=== PATIENT | male | born 1940 ===

== ENCOUNTER 2019-05-28 08:16 | Emergency (ER) | payer OTHER, MEDICARE, BC ==
[~2019-05-28] VITALS: Ht 167.6 cm; Wt 64.4 kg
[2019-05-28] MEDS ORDERED: LAMO25 PO (08:33)
[2019-05-28] MEDS ORDERED: TAMS.4ER PO (08:33)
[2019-05-28] MEDS ORDERED: ACET500 (08:33)
[2019-05-28] MEDS ORDERED: Zithromax250 MG PO (09:09)
== END 2019-05-28 09:22 | disposition home or self-care (01) ==
LOC: ER 08:16
DX: J18.9 Pneumonia, unspecified organism (principal); F43.10 Post-traumatic stress disorder, unspecified; Z79.899 Other long term (current) drug therapy
CPT/HCPCS: 71046; 99283-25

== ENCOUNTER 2019-05-31 05:19 | Inpatient (IN) | payer OTHER, MEDICARE, BC ==
[~2019-05-31] VITALS: Ht 165.1 cm
[~2019-05-31 05:19] MED LIST: ACET500; LAMO25 PO; TAMS.4ER PO; Zithromax250 MG PO
[2019-05-31 05:44] LABS: PCO2 Arterial 37.2 mmHg (35-45); PO2 Arterial 54.8 mmHg (80-100); pH Blood Arterial 7.42 (7.35-7.45)
[2019-05-31 05:58] LABS: BASOPHILS ABSOLUTE AUTO 0.08 K/mm3 (0.00-0.23); BASOPHILS PERCENT AUTO 1 % (0-2); EOSINOPHILS PERCENT AUTO 4 % (0-6); Hematocrit 38.2 % (37.0-53.0); Hemoglobin 12.7 g/dL (13.5-17.5); IMMATURE GRAN ABSOLUTE AUTO 0.07 K/mm3 (0.00-0.10); IMMATURE GRAN PERCENT AUTO 1 % (0-1); LYMPHOCYTES ABSOLUTE AUTO 1.68 K/mm3 (0.84-5.20); LYMPHOCYTES PERCENT AUTO 15 % (21-46); MONOCYTES ABSOLUTE AUTO 1.28 K/mm3 (0.16-1.47); MONOCYTES PERCENT AUTO 12 % (4-13); Mean Corpuscular HGB 30.5 pg (26.0-34.0); Mean Corpuscular HGB Conc 33.2 g/dL (31.5-36.5); Mean Corpuscular Volume 92 fL (80-100); Mean Platelet Volume 8.9 fL (9.1-12.4); NEUTROPHILS ABSOLUTE AUTO 7.53 K/mm3 (1.96-9.15); NEUTROPHILS PERCENT AUTO 68 % (41-73); Platelet Count 352 K/mm3 (150-400); RDW Coefficient Variation 12.8 % (11.7-14.2); Red Blood Cell Count 4.16 M/mm3 (4.30-5.90); White Blood Cell Count 11.04 K/mm3 (4.00-11.30)
[2019-05-31 06:17] LABS: Alanine Aminotransfer (ALT/SGP 25 U/L (12-78); Albumin, Blood 3.5 g/dL (3.4-5.0); Albumin/Globulin Ratio 0.9 (0.8-1.8); Alk Phos 57 U/L (50-136); Anion Gap 6 mmol/L (6-16); Aspartate Aminotrans (AST/SGOT 24 U/L (12-37); Bilirubin, Total 0.5 mg/dL (0.1-1.0); Blood Urea Nitrogen 16 mg/dL (8-24); CO2, Blood 26 mmol/L (21-32); Calcium, Blood 8.5 mg/dL (8.5-10.1); Chloride, Blood 100 mmol/L (98-108); Globulin, Blood 3.7 g/dL (2.2-4.0); Glomerular Filtration Rate >60 (60-); Glucose, Blood 100 mg/dL (70-99); Sodium, Blood 132 mmol/L (136-145); Total Protein, Blood 7.2 g/dL (6.4-8.2)
[2019-05-31 06:18] LABS: Influenza A Negative (NEGATIVE); Influenza B Negative (NEGATIVE)
--- NOTE | 2019-05-31 11:04 | NUR ---
Echocardiogram completed.
--- NOTE | 2019-05-31 11:05 | NUR ---
Echocardiogram completed.
--- NOTE | 2019-05-31 18:28 | NUR ---
SHIFT SUMMARY PT ARRIVED TO DEPARTMENT ON 6LNC O2 FROM ED. IN ER PT WAS ON V60 BIPAP FOR O2 SUPPORT. PT WAS ABLE TO BE WEANED TO 3LNC THIS AFTERNOON AND SWITCHED TO MSERIES BIPAP. PT WOULD INTERMITTANLY USE BIPAP WHEN HAVING INCREASED SOB. TROPONIN LEVEL CONTINUE TO INCREASE TODAY TO 1.13. DR OCAMPO AWARE AND ANOTHER TROPONIN ORDERED FOR MIDNIGHT. HEPARIN DRIP WAS INITIATED THIS AFTERNOON AT 13UNIT/KG/HR. NEXT PTT PLANNED FOR 1999. DR ZULUAGA WAS CONSULTED TODAY FOR ELEVATED TROPONINS. NO ACUTE INTERVENTIONS PLANNED AT THIS TIME. TELEMETRY SHOWS PT TO BE IN A SINUS RHYTHM W/BBB IN 80'S-90'S. VITALS HAVE REMAINED STABLE DURING SHIFT, NO C/O CHEST PAIN TODAY.
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
[2019-06-01 03:53] LABS: BASOPHILS ABSOLUTE AUTO 0.04 K/mm3 (0.00-0.23); BASOPHILS PERCENT AUTO 0 % (0-2); EOSINOPHILS ABSOLUTE AUTO 0.01 K/mm3 (0.00-0.68); EOSINOPHILS PERCENT AUTO 0 % (0-6); Hematocrit 32.5 % (37.0-53.0); Hemoglobin 10.9 g/dL (13.5-17.5); IMMATURE GRAN ABSOLUTE AUTO 0.15 K/mm3 (0.00-0.10); IMMATURE GRAN PERCENT AUTO 1 % (0-1); LYMPHOCYTES ABSOLUTE AUTO 1.23 K/mm3 (0.84-5.20); LYMPHOCYTES PERCENT AUTO 6 % (21-46); MONOCYTES ABSOLUTE AUTO 1.78 K/mm3 (0.16-1.47); MONOCYTES PERCENT AUTO 9 % (4-13); Mean Corpuscular HGB 30.6 pg (26.0-34.0); Mean Corpuscular HGB Conc 33.5 g/dL (31.5-36.5); Mean Corpuscular Volume 91 fL (80-100); Mean Platelet Volume 9.1 fL (9.1-12.4); NEUTROPHILS ABSOLUTE AUTO 17.13 K/mm3 (1.96-9.15); NEUTROPHILS PERCENT AUTO 84 % (41-73); Platelet Count 341 K/mm3 (150-400); RDW Coefficient Variation 12.8 % (11.7-14.2); RDW Standard Deviation 42.8 fL (35.1-46.3); Red Blood Cell Count 3.56 M/mm3 (4.30-5.90); White Blood Cell Count 20.34 K/mm3 (4.00-11.30)
[2019-06-01 04:16] LABS: Alanine Aminotransfer (ALT/SGP 16 U/L (12-78); Albumin/Globulin Ratio 0.9 (0.8-1.8); Alk Phos 45 U/L (50-136); Anion Gap 6 mmol/L (6-16); Aspartate Aminotrans (AST/SGOT 19 U/L (12-37); Bilirubin, Total 0.3 mg/dL (0.1-1.0); Blood Urea Nitrogen 25 mg/dL (8-24); Bun/Creatinine Ratio 32.4 (12.0-20.0); CO2, Blood 24 mmol/L (21-32); Calcium, Blood 8.3 mg/dL (8.5-10.1); Chloride, Blood 97 mmol/L (98-108); Creatinine, Blood 0.77 mg/dL (0.60-1.20); Globulin, Blood 3.2 g/dL (2.2-4.0); Glomerular Filtration Rate >60 (60-); Glucose, Blood 124 mg/dL (70-99); Potassium, Blood 4.8 mmol/L (3.5-5.5); Sodium, Blood 127 mmol/L (136-145); Total Protein, Blood 6.2 g/dL (6.4-8.2)
--- NOTE | 2019-06-01 18:11 | NUR ---
SHIFT SUMMARY PT ALERT AND ORIENTED. VS STABLE. O2 SATS HAVE REMAINED ABOVE 90% ON 4L NC OR BIPAP WITH 4L BLEED IN. PT DESATURATES QUICKLY WITH MINIMAL EXERTION. PT ABLE TO COUGH UP THICK SPUTUM AND SPECIMEN SENT TO LAB. PT RECEIVED BREATHING TX THIS AM PER RT AND REPORTS BREATHING HAS IMPROVED SINCE. PT DENIES ANY PAIN. WILL CONTINUE TO MONITOR AND REPORT TO ONCOMING RN. CALL LIGHT IN REACH.
--- NOTE | 2019-06-01 19:30 | NUR ---
ASSUMED CARE OF PT. IN NO ACUTE DISTRESS AT THIS TIME. DENIES PAIN. CALL LIGHT AND POSSESSIONS IN REACH, DENIES ANY NEEDS AT THIS TIME. WILL CONTINUE TO MONITOR.
--- NOTE | 2019-06-02 03:45 | NUR ---
NOTIFIED BY TRAVEL PT OF PT O2 SATURATION DROPPING TO INTO THE 70S. ASSESSED PT AND CALLED RESPIRATORY THERAPY TO ADMINISTER BREATHING TX TO PT. O2 TITRATED TO 6L/NC TO RAISE SATS >90%. BIPAP REPLACED WITH 6L O2 ADDED. WILL CONTINUE TO MONITOR AND REASSESS.
[2019-06-02 04:00] LABS: Anion Gap 7 mmol/L (6-16); Blood Urea Nitrogen 30 mg/dL (8-24); Bun/Creatinine Ratio 42.7 (12.0-20.0); CO2, Blood 26 mmol/L (21-32); Calcium, Blood 8.2 mg/dL (8.5-10.1); Chloride, Blood 94 mmol/L (98-108); Glomerular Filtration Rate >60 (60-); Glucose, Blood 107 mg/dL (70-99); Potassium, Blood 4.7 mmol/L (3.5-5.5); Sodium, Blood 127 mmol/L (136-145)
--- NOTE | 2019-06-02 04:15 | NUR ---
PT ASLEEP C HOB ELEVATED, APPEARS COMFORTABLE AT THIS TIME. 02 SAT >90% ON BIPAP. NO FURTHER S/S RESPIRATORY DISTRESS NOTED.
--- NOTE | 2019-06-02 04:20 | NUR ---
RECEIVED PHONE CALL FROM LILO IN PHARMACY. NO CHANGES TO PT'S HEPARIN AT THIS TIME.
--- NOTE | 2019-06-02 05:35 | NUR ---
SPOKE TO DR. OCAMPO REGARDING PT'S SODIUM LEVEL. NO NEW ORDERS AT THIS TIME.
--- NOTE | 2019-06-02 05:56 | NUR ---
PT RESTING IN BED COMFORTABLY, IN NO ACUTE DISTRESS. WAS MONITORED EVERY 1-2 HOURS WITH NEEDS MET. DENIES ANY NEEDS AT THIS TIME. CALL LIGHT AND POSSESSIONS IN REACH, BED IN LOW AND LOCKED POSITION.
--- NOTE | 2019-06-02 18:27 | NUR ---
SHIFT SUMMARY PT ALERT AND ORIENTED. VS STABLE. HR NSR. BP STABLE. O2 SATS HAVE REMAINED ABOVE 90% ON 4L NC. PT REPORTS BREATHING "MUCH EASIER" THIS SHIFT. PT ABLE TO TOLERATE ACTIVITY AND SHOWERED THIS SHIFT. SATS REMAINED ABOVE 90% WITH ACTIVITY. PT DENIES ANY PAIN. PLAN FOR STRESS TEST TOMORROW. PT TO BE NPO AT MIDNIGHT. WILL CONTINUE TO MONITOR AND REPORT TO ONCOMING RN.
--- NOTE | 2019-06-02 19:46 | NUR ---
CARE ASSUMPTION PT A&O X4. VSS. MONITOR SHOWS SR, HR 70's. LUNG SOUNDS CLEAR, SPO2 > 92% ON 4L NC. PT REPORTS "GREENISH-YELLOW" MUCUS W/ COUGH, STATING "IT'S GETTING CLEARER, I'M COUGHING MORE AND MORE UP." PT REQUESTING COUGH MEDICATION, WILL PROVIDE PER EMAR. PT W/ HEPARIN GTT, VERIFIED W/ DAY SHIFT RN UPON TRANSFER OF CARE, THEN TITRATED PER PHARMACY, SEE EMAR. PT TO BE NPO AFTER MIDNIGHT FOR STRESS TEST IN AM. WILL CONTINUE TO MONITOR AND PROVIDE CARE.
[2019-06-03 03:50] LABS: BASOPHILS ABSOLUTE AUTO 0.08 K/mm3 (0.00-0.23); BASOPHILS PERCENT AUTO 1 % (0-2); EOSINOPHILS ABSOLUTE AUTO 0.46 K/mm3 (0.00-0.68); EOSINOPHILS PERCENT AUTO 3 % (0-6); Hematocrit 35.1 % (37.0-53.0); Hemoglobin 11.5 g/dL (13.5-17.5); IMMATURE GRAN ABSOLUTE AUTO 0.17 K/mm3 (0.00-0.10); IMMATURE GRAN PERCENT AUTO 1 % (0-1); LYMPHOCYTES PERCENT AUTO 12 % (21-46); MONOCYTES ABSOLUTE AUTO 2.01 K/mm3 (0.16-1.47); MONOCYTES PERCENT AUTO 12 % (4-13); Mean Corpuscular HGB Conc 32.8 g/dL (31.5-36.5); Mean Corpuscular Volume 92 fL (80-100); Mean Platelet Volume 9.1 fL (9.1-12.4); NEUTROPHILS ABSOLUTE AUTO 12.15 K/mm3 (1.96-9.15); NEUTROPHILS PERCENT AUTO 72 % (41-73); Platelet Count 351 K/mm3 (150-400); RDW Standard Deviation 42.8 fL (35.1-46.3); Red Blood Cell Count 3.83 M/mm3 (4.30-5.90); White Blood Cell Count 16.87 K/mm3 (4.00-11.30)
[2019-06-03 04:05] LABS: Anion Gap 7 mmol/L (6-16); Blood Urea Nitrogen 21 mg/dL (8-24); Bun/Creatinine Ratio 28.7 (12.0-20.0); CO2, Blood 27 mmol/L (21-32); Calcium, Blood 8.3 mg/dL (8.5-10.1); Chloride, Blood 93 mmol/L (98-108); Creatinine, Blood 0.73 mg/dL (0.60-1.20); Glomerular Filtration Rate >60 (60-); Glucose, Blood 99 mg/dL (70-99); Potassium, Blood 4.3 mmol/L (3.5-5.5); Sodium, Blood 127 mmol/L (136-145)
--- NOTE | 2019-06-03 05:43 | NUR ---
SHIFT SUMMARY PT CONTINUES TO BE A&O X4. VSS. MONITOR SHOWS SR, HR 70's-80's. LUNG SOUNDS CLEAR, SPO2 > 92% ON 3-4L NC OR BIPAP W/ 3L BLEED IN. PT MEDICATED W/ PRN COUGH MEDICATION PER EMAR/PT REQUEST X1 THIS SHIFT. PT RECIEVING BREATHING TX's BY RT. PT NPO SINCE MIDNIGHT FOR STRESS TEST TO BE DONE THIS AM. HEPARIN GTT INFUSING PER ORDERS. WILL CONTINUE TO MONITOR AND PROVIDE CARE UNTIL REPORT OFF TO DAY SHIFT RN.
[2019-06-03] MEDS ORDERED: LAMO25 PO (08:13)
--- NOTE | 2019-06-03 10:09 | NUR ---
[facility] MED L[facility]: [facility] TO [facility] TO [facility]QU[facility] MED LIST INORDER TO INSURE PT HOME MED LIST IS UPTO DATE.
--- NOTE | 2019-06-03 20:38 | NUR ---
ASSUMED CARE OF PATIENT AT 1900, PATIENT AWAKE AND ALERT LYING IN BED IN NO APPARENT DISTRESS. HEPARIN DRIP VERIFIED WITH OUTGOING NURSE RICHARD (22UNITS/HR AT 63KG). ALL VS WNL, PATIENT DENIES CP, DENIES HEADACHE. PATIENT QUESTIONS HIS NPO STATUS PER PROCEDURE TOMORROW, WILL RESEARCH AND RESPOND. WILL TREAT PATIENT PER EMAR AND UNIT PROTOCOL, AND WILL CONTINUE TO MONITOR.
--- NOTE | 2019-06-04 07:05 | NUR ---
SHIFT SUMMARY NO ACUTE CHANGES FROM NOTE PREVIOUS. PATIENT DENIES PAIN, DENIES DISCOMFORT. ON BIPAP FROM AROUND 5 ONWARD, PATIENT WAS COOPERATIVE WITH ROUTINE INTERVENTIONS, AROUSABLE BY VOICE (LOUD, HE IS HARD OF HEARING), AND DENIED NEED FOR ANYTHING OUTSIDE ROUTINE. ALL VSS AND WNL T/O SHIFT. CARE AND REPORT PASSED TO ONCOMING SHIFT AT 0700, PATIENT BREATHING DEEP, LYING IN BED, CALL LIGHT IN REACH AND BED LOCKED AND LOW.
--- NOTE | 2019-06-04 08:00 | NUR ---
pt laying in bed awake a/ox3, pleasant and cooperative with care, follows commands well, denies pain, lungs are clear in upper escalante, dim in bases, resp even and unlabored, no cough noted, is on 3 liters o2 via n/c, hrr, tele in place running sr per monitor, see strip, no edema noted, ppp+1, cap refill <3sec, vs stable, afebrile, iv site is clear and patent, btx4, abd flat soft nontender, voids without diff, via urinal, skin c/w/d, maew, jane, call light in reach. will be having second portion of stress test today. will give breakfast, then npo for test at 1430.
--- NOTE | 2019-06-04 12:27 | NUR ---
pt is npo for pending stress test, he is doing ok, no complaints. pallative care in to speak with him. call light in reach.
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
--- NOTE | 2019-06-04 18:27 | NUR ---
pt doing ok, will have cardiology consult. is eating well. no complaints, is asking about going home. call light in reach, no further changes.
--- NOTE | 2019-06-04 19:48 | NUR ---
ASSUMED CARE ASSUMED CARE OF PT AT 1900, PATIENT AWAKE AND ALERT IN BED, NO DISTRESS, NO URGENT NEEDS. VITAL SIGNS WNL, BREATH SOUNDS CLEAR AND DIMINISHED IN LOWER LOBES. HEPARIN GTT IS VERIFIED W/ OUTGOING NURSE. WILL CONTINUE TO [facility]
--- NOTE | 2019-06-05 01:20 | NUR ---
HEPARIN RATE CHANGE PER PHARMACY, PATIENT'S HEPARIN DRIP RATE CHANGED TO 21.5 UNITS/KG/HR, DOSED AT 63KG. APTT RESULTS SHOW 96.8. PATIENT IS AWAKE IN BED AT THIS TIME IN NO DISTRESS, EXTREMELY CONVERSATIONAL. RATE CHANGED VERIFIED WITH SECOND RN. WILL CONTINUE TO MONITOR
--- NOTE | 2019-06-05 06:20 | NUR ---
SHIFT SUMMARY NO CHANGES FROM INITIAL NOTE. PATIENT WAS COOPERATIVE WITH ALL INTERVENTIONS AND NOTHING BEYOND ROUTINE INTERVENTIONS OCCURRED THIS SHIFT. HEPARIN DRIP WAS TITRATED PER PHARMACY ONCE, AND CONTINUED THROUGH A NEW BAG ONE TIME. ALL VSS AND WNL T/O THE SHIFT. WILL CONTINUE TO MONITOR AND WILL PASS CARE AND REPORT TO ONCOMING SHIFT. BED IS LOCKED AND LOW, CALL LIGHT W/IN REACH
--- NOTE | 2019-06-05 07:21 | NUR ---
pt laying in bed awake a/ox3, pleasant and cooperative with care, follows commands well, denies pain at this time, lungs are clear in upper escalante, dim in bases, resp even and unlabored, no cough noted or reported, is on 2 liters at this time, hrr, tele in place running sr with bbb per tele, see strip, no edema noted, ppp+1, cap refill <3sec, vs stable, afebrile, iv site is clear and patent, to left ac, heperin infusing, btx4, abd flat soft nontender, voids via urinal, clear yellow urine, skin c/w/d but frail, jane george, call light in reach, Dr. 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
[2019-06-05 08:03] LABS: International Normalized Ratio 1.12; Prothrombin Time Results 11.9 Sec (9.7-11.5)
--- NOTE | 2019-06-05 13:30 | NUR ---
PT RETURNED TO ROOM FROM CATH, TR BAND TO R WRIST, SITE IS CLEAR WITH SOME OLD BLOOD AROUND PERIMETER, V.S. WNL. PT IS A BIT LOOPY, BUT WIDE AWAKE, NO COMPLAINTS. WILL BE GOING TO [facility] FOR BIPASS, WILL COME SPEAK TO PT. CALL LIGHT IN REACH.
--- NOTE | 2019-06-05 17:36 | NUR ---
PT IS BEING [facility] TRANSFERED TO [facility] FOR BIPASS, HIS TR BAND HAS BEEN DEFLATED AND REMOVED, WITH OCCLUSIVE DRESSING PLACED, ARM BOARD STILL IN PLACE. REPORT WAS GIVEN TO LEIDY DIAZ, HE LEFT WITH ALL HIS BELONGINGS VIA [facility].
== END 2019-06-05 17:32 | disposition short-term general hospital (02) | DRG 291 ==
LOC: ER 05:19 → PCU 08:44
PROVIDERS: Emergency Medicine; Internal Medicine; Internal Medicine Cardiovascular Disease; Nurse Practitioner Acute Care; ADMIT Hospitalist
PROC: 5A09357 Assistance with Respiratory Ventilation, Less than 24 Consecutive Hours, Continuous Positive Airway Pressure (ICD-10-PCS; principal; 2019-05-31)
DX: I11.0 Hypertensive heart disease with heart failure (principal); J96.01 Acute respiratory failure with hypoxia; I47.2 Ventricular tachycardia; E87.1 Hypo-osmolality and hyponatremia; I24.8 Other forms of acute ischemic heart disease; I50.43 Acute on chronic combined systolic (congestive) and diastolic (congestive) heart failure; N40.0 Benign prostatic hyperplasia without lower urinary tract symptoms; F43.10 Post-traumatic stress disorder, unspecified; Z87.891 Personal history of nicotine dependence; I34.0 Nonrheumatic mitral (valve) insufficiency; I25.5 Ischemic cardiomyopathy; I25.10 Atherosclerotic heart disease of native coronary artery without angina pectoris
CPT/HCPCS: 36415; 36600; 71045; 71260; 78452; 80048; 80053; 82803; 83605; 83735; 83880; 84145; 84484; 85025; 85610; 85730; 86850; 86900; 86901; 87040; 87070; 87077; 87186; 87205; 87449; 87804; 93005; 93010; 93017; 93306; 93458; 94640; 94644; 94660; 94762; 96365-59; 96375; 97116; 97161; 97165; 99152; 99285-25; A9500; C1769; C1894; J0456; J0696; J0706; J1644; J1650; J1940; J2250; J2785; J2930; J3010; J3475; J7030; J7040; J7050; Q9967

== ENCOUNTER 2019-07-24 14:31 | Inpatient (IN) | payer OTHER ==
[~2019-07-24] VITALS: Ht 167.6 cm; Wt 58.9 kg
[~2019-07-24 14:31] MED LIST changes: -ACET500; +LAMO100 PO; -LAMO25 PO; +Lamictal25 MG PO
[2019-07-24 15:09] LABS: BASOPHILS ABSOLUTE AUTO 0.07 K/mm3 (0.00-0.23); BASOPHILS PERCENT AUTO 1 % (0-2); EOSINOPHILS ABSOLUTE AUTO 0.41 K/mm3 (0.00-0.68); EOSINOPHILS PERCENT AUTO 4 % (0-6); Hematocrit 32.2 % (37.0-53.0); Hemoglobin 10.1 g/dL (13.5-17.5); IMMATURE GRAN ABSOLUTE AUTO 0.08 K/mm3 (0.00-0.10); IMMATURE GRAN PERCENT AUTO 1 % (0-1); LYMPHOCYTES ABSOLUTE AUTO 0.88 K/mm3 (0.84-5.20); LYMPHOCYTES PERCENT AUTO 8 % (21-46); MONOCYTES ABSOLUTE AUTO 1.34 K/mm3 (0.16-1.47); MONOCYTES PERCENT AUTO 13 % (4-13); Mean Corpuscular HGB 28.1 pg (26.0-34.0); Mean Corpuscular HGB Conc 31.4 g/dL (31.5-36.5); Mean Corpuscular Volume 89 fL (80-100); Mean Platelet Volume 8.5 fL (9.1-12.4); NEUTROPHILS ABSOLUTE AUTO 7.92 K/mm3 (1.96-9.15); NEUTROPHILS PERCENT AUTO 74 % (41-73); Platelet Count 332 K/mm3 (150-400); RDW Standard Deviation 46.3 fL (35.1-46.3)
[2019-07-24 15:25] LABS: Magnesium, Blood 2.1 mg/dL (1.6-2.4); Troponin I 0.021 ng/mL (0.000-0.040)
[2019-07-24 15:26] LABS: Alanine Aminotransfer (ALT/SGP 20 U/L (12-78); Albumin, Blood 3.1 g/dL (3.4-5.0); Albumin/Globulin Ratio 0.8 (0.8-1.8); Alk Phos 74 U/L (50-136); Anion Gap 5 mmol/L (6-16); Aspartate Aminotrans (AST/SGOT 21 U/L (12-37); Bilirubin, Total 0.4 mg/dL (0.1-1.0); Blood Urea Nitrogen 26 mg/dL (8-24); Bun/Creatinine Ratio 39.9 (12.0-20.0); CO2, Blood 23 mmol/L (21-32); Calcium, Blood 8.6 mg/dL (8.5-10.1); Chloride, Blood 101 mmol/L (98-108); Creatinine, Blood 0.65 mg/dL (0.60-1.20); Globulin, Blood 3.7 g/dL (2.2-4.0); Glomerular Filtration Rate >60 (60-); Glucose, Blood 106 mg/dL (70-99); Potassium, Blood 4.2 mmol/L (3.5-5.5); Sodium, Blood 129 mmol/L (136-145); Total Protein, Blood 6.8 g/dL (6.4-8.2)
[2019-07-24 15:28] LABS: PO2 Arterial 57.1 mmHg (80-100); pH Blood Arterial 7.48 (7.35-7.45)
[2019-07-24 15:48] LABS: Influenza A Negative (NEGATIVE); Influenza B Negative (NEGATIVE)
[2019-07-24] MEDS ORDERED: ASPI81CH PO (16:18)
[2019-07-24] MEDS ORDERED: ATOR20 PO (16:18)
[2019-07-24] MEDS ORDERED: METO50 PO (16:19)
[2019-07-24] MEDS ORDERED: Thera-M1 EACH PO (16:19)
[2019-07-24] MEDS ORDERED: DILT120 PO (16:19)
[2019-07-24] MEDS ORDERED: POTA10T PO (17:05)
[2019-07-24] MEDS ORDERED: Ferrous Sulfat325 M2 PO (17:07)
[2019-07-24] MEDS ORDERED: FURO20 PO (17:08)
[2019-07-24] MEDS ORDERED: OXYC5 PO (17:12)
[2019-07-24] MEDS ORDERED: ACET325 PO (17:14)
--- NOTE | 2019-07-24 18:57 | NUR ---
PT ARRIVES FROM THE ER, ALERT AND ORIENTED, ABLE TO AMBULATE INDEPENDENTLY TO THE BATHROOM, PT DENIES CHEST PAIN
[2019-07-25 04:40] LABS: BASOPHILS ABSOLUTE AUTO 0.05 K/mm3 (0.00-0.23); BASOPHILS PERCENT AUTO 1 % (0-2); EOSINOPHILS ABSOLUTE AUTO 0.37 K/mm3 (0.00-0.68); EOSINOPHILS PERCENT AUTO 4 % (0-6); Hematocrit 31.1 % (37.0-53.0); Hemoglobin 9.8 g/dL (13.5-17.5); IMMATURE GRAN ABSOLUTE AUTO 0.03 K/mm3 (0.00-0.10); IMMATURE GRAN PERCENT AUTO 0 % (0-1); LYMPHOCYTES ABSOLUTE AUTO 1.09 K/mm3 (0.84-5.20); LYMPHOCYTES PERCENT AUTO 11 % (21-46); MONOCYTES ABSOLUTE AUTO 1.25 K/mm3 (0.16-1.47); MONOCYTES PERCENT AUTO 13 % (4-13); Mean Corpuscular HGB 27.7 pg (26.0-34.0); Mean Corpuscular HGB Conc 31.5 g/dL (31.5-36.5); Mean Corpuscular Volume 88 fL (80-100); Mean Platelet Volume 8.5 fL (9.1-12.4); NEUTROPHILS PERCENT AUTO 72 % (41-73); Platelet Count 311 K/mm3 (150-400); RDW Coefficient Variation 14.1 % (11.7-14.2); RDW Standard Deviation 45.7 fL (35.1-46.3); Red Blood Cell Count 3.54 M/mm3 (4.30-5.90); White Blood Cell Count 9.99 K/mm3 (4.00-11.30)
[2019-07-25 05:01] LABS: Alanine Aminotransfer (ALT/SGP 18 U/L (12-78); Albumin/Globulin Ratio 0.9 (0.8-1.8); Alk Phos 65 U/L (50-136); Anion Gap 7 mmol/L (6-16); Aspartate Aminotrans (AST/SGOT 18 U/L (12-37); Bilirubin, Total 0.6 mg/dL (0.1-1.0); Blood Urea Nitrogen 26 mg/dL (8-24); Bun/Creatinine Ratio 32.6 (12.0-20.0); CO2, Blood 25 mmol/L (21-32); Calcium, Blood 8.3 mg/dL (8.5-10.1); Chloride, Blood 101 mmol/L (98-108); Globulin, Blood 3.5 g/dL (2.2-4.0); Glomerular Filtration Rate >60 (60-); Glucose, Blood 94 mg/dL (70-99); Sodium, Blood 133 mmol/L (136-145); Total Protein, Blood 6.5 g/dL (6.4-8.2)
--- NOTE | 2019-07-25 05:47 | NUR ---
SHIFT SUMMARY PT NEW ER ADMIT THIS SHIFT (329), PT WALKED TO BED FROM STRETCHER (HEAVY 2 ASSIST), PT WAS VERY TIRED ON ARRIVAL, NO ACCUTE CHANGES SINCE ASSUMING CARE, NO C/O ANY KIND, (ISAURA) HAS REMAINED AT BEDSIDE T/O SHIFT AND IS VERY ACTIVE IN PTS CARE, PT SLEEPING AT THIS TIME, CALL LIGHT IN REACH, WILL CONT TO MONITOR UNTIL REPORT GIVEN TO DAY RN.
--- NOTE | 2019-07-25 05:57 | NUR ---
SHIFT SUMMARY PT WAS NEW ER ADMIT AT START OF SHIFT, NO ACUTE CHANGES SINCE ASSUMING CARE, NO CP OR SOB REPORTED, PT STATES HE HAS "NOT SLEPT AT ALL" AND HAS "COUGHED ALL NIGHT", THIS RN HAS HEARD SOME OCCASIONAL MOIST COUGH AND HAVE CHECKED ON PT SEVERAL TIMES AND HE HAS BEEN ASLEEP, PT HAS WOKE SEVERAL TIMES TO VOID & HAS BEEN STEADY W/FWW TO BR. PT BEDRESTING AT THIS TIME, CALL LIGHT IN REACH, WILL CONT TO MONITOR UNTIL REPORT GIVEN TO DAY RN.
--- NOTE | 2019-07-25 18:03 | NUR ---
SHIFT SUMMARY PT IS A/O X 4 WITH NO C/O PAIN. HE SELF AMBUALTES IN THE ROOM. PT DENIES ANY SOB OR CHEST PAIN. ACCOUNTING PROFESSIONAL REPORTS 1ST DEGREE BLOCK WITH A BUNDLE BRANCH BLOCK. TEDS ARE IN PLACE ORDERED. PT MET WITH WITH [facility] VOLUNTEER TODAY WITH SEEMED TO LIFT HIS SPIRITS SIGNIFICANTLY. PT IS RESTING IN BED AND IS ABLE TO MAKE HIS NEEDS KNOWN. HE CALLS FOR HELP WHEN NEEDED. CALL LIGHT IS IN REACH.
--- NOTE | 2019-07-26 04:52 | NUR ---
SHIFT SUMMARY PT HAS HAD NO ACUTE CHANGES THIS SHIFT, NO C/O ANY KIND, UP TO BR INDEP A FEW TIMES T/O NIGHT, OTHER THAN THAT SLEPT T/O SHIFT, PT SLEEPING AT THIS TIME, CALL LIGHT IN REACH, WILL CONT TO MONITOR UNTIL REPORT GIVEN TO DAY RN.
[2019-07-26 05:05] LABS: Hematocrit 29.7 % (37.0-53.0); Hemoglobin 9.4 g/dL (13.5-17.5); Mean Corpuscular HGB 27.6 pg (26.0-34.0); Mean Corpuscular HGB Conc 31.6 g/dL (31.5-36.5); Mean Corpuscular Volume 87 fL (80-100); Mean Platelet Volume 8.5 fL (9.1-12.4); Platelet Count 300 K/mm3 (150-400); RDW Coefficient Variation 14.2 % (11.7-14.2); RDW Standard Deviation 45.3 fL (35.1-46.3); White Blood Cell Count 10.21 K/mm3 (4.00-11.30)
[2019-07-26 05:33] LABS: Albumin, Blood 2.7 g/dL (3.4-5.0); Anion Gap 6 mmol/L (6-16); Blood Urea Nitrogen 24 mg/dL (8-24); Bun/Creatinine Ratio 29.1 (12.0-20.0); CO2, Blood 25 mmol/L (21-32); Calcium, Blood 8.4 mg/dL (8.5-10.1); Chloride, Blood 99 mmol/L (98-108); Creatinine, Blood 0.83 mg/dL (0.60-1.20); Glomerular Filtration Rate >60 (60-); Glucose, Blood 89 mg/dL (70-99); Phosphorus, Blood 3.4 mg/dL (2.5-4.9); Sodium, Blood 130 mmol/L (136-145)
--- NOTE | 2019-07-26 15:50 | NUR ---
SHIFT SUMMARY PT IS A/O X 4 WITH NO C/O PAIN OR DISCOMFORT. HE DENIES CHEST PAIN AND SOB. HE IS PLEASANT AND THANKFUL FOR HIS CARE. COVERAGE SPECIALIST REPORTS SINUS RHYTHM. BOBBY GUEVARA DONNED. EDEMA IMPROVED WITH LASIX ORDERED. WORKED WITH PT TODAY AND WAS ABLE TO AMBULATE AROUND THE UNIT WITH A FWW. HE REMAINS IND IN HIS ROOM AND SELF AMBULATES TO THE TOILET. HE WAS SET UP FOR A SHOWER THIS MORNING AND LINENS WERE CHANGED. PT IS ABLE TO MAKE HIS NEEDS KNOWN AND CALLS FOR HELP WHEN NEEDED. CALL LIGHT IS IN REACH.
--- NOTE | 2019-07-27 05:06 | NUR ---
SHIFT SUMMARY- PT. A&O, INDEPENDENT IN ROOM. DENIED ANY PAIN OR DISCOMFORT T/O THE NIGHT. PT. NOTED TO HAVE SOME SOB W/EXERTION, ON 2L NC. VSS. PT. ASLEEP MOST OF THE NIGHT. NO APPARENT DISTRESS NOTED. CALL LIGHT WITHIN REACH AND SIDE RAILS UP X2. WILL CONT TO MONITOR.
--- NOTE | 2019-07-27 19:12 | NUR ---
PT GAVE PERSMISSION FOR SRGer.ROQUE TO PROVIDE CARE ON 07/28/19
--- NOTE | 2019-07-28 05:13 | NUR ---
SHIFT SUMMARY- PT. HAD NO ACUTE CHANGES OVERNIGHT. TOOK SHOWER LAST AND SCHEDULED MEDS GIVEN. TOLERATED WELL. PT. STATED SLEPT WELL DURING THE NIGHT. DENIED ANY PAIN OR DISCOMFORT. CALL LIGHT WITHIN REACH AND SIDE RAILS UPX2. WILL CONT TO MONITOR.
[2019-07-28 09:17] LABS: Anion Gap 6 mmol/L (6-16); Blood Urea Nitrogen 28 mg/dL (8-24); Bun/Creatinine Ratio 35.8 (12.0-20.0); CO2, Blood 30 mmol/L (21-32); Calcium, Blood 8.7 mg/dL (8.5-10.1); Chloride, Blood 93 mmol/L (98-108); Creatinine, Blood 0.78 mg/dL (0.60-1.20); Glomerular Filtration Rate >60 (60-); Glucose, Blood 113 mg/dL (70-99); Potassium, Blood 3.7 mmol/L (3.5-5.5); Sodium, Blood 129 mmol/L (136-145)
--- NOTE | 2019-07-28 19:09 | NUR ---
PATIENT IS ALERT AND ORIENTED AND COOPERATIVE WITH CARE. 1,500 ML FLUID RESTRICTION. NO COMPLINATS.
--- NOTE | 2019-07-29 05:00 | NUR ---
SHIFT SUMMARY- NO ACUTE EVENTS OVERNIGHT. PT. A&O, PLEASANT AND COOPERATIVE WITH CARE. PT. CONTS TO BE DIURESED WITH GOOD URINE OUTPUT. NO COMPLAINTS T/O THE SHIFT. PT. ON 1500ML FLUID RESTRICTION, COMPLIANT WITH RESTRICTION. DENIES ANY NEEDS AT THIS TIME. CALL LIGHT WITHIN REACH AND SIDE RAILS UP X2. WILL CONT TO MONITOR.
[2019-07-29 05:31] LABS: Magnesium, Blood 2.1 mg/dL (1.6-2.4)
[2019-07-29 05:32] LABS: Anion Gap 7 mmol/L (6-16); Blood Urea Nitrogen 30 mg/dL (8-24); Bun/Creatinine Ratio 34.1 (12.0-20.0); CO2, Blood 29 mmol/L (21-32); Calcium, Blood 8.6 mg/dL (8.5-10.1); Chloride, Blood 95 mmol/L (98-108); Creatinine, Blood 0.88 mg/dL (0.60-1.20); Glomerular Filtration Rate >60 (60-); Glucose, Blood 89 mg/dL (70-99); Potassium, Blood 3.9 mmol/L (3.5-5.5); Sodium, Blood 131 mmol/L (136-145)
--- NOTE | 2019-07-29 17:50 | NUR ---
PATIENT A/OX4, UP INDEPENDENTLY IN ROOM. VSS, NOW ON RA. DENIES ANY PAIN OR DISCOMFORT. SKIN INTACT. 22G IV TO L HAND WNL AND SL. CONTINUES ON IV LASIX. 1.5L FLUID RESTRICTION. CALM AND COOPERATIVE WITH CARE, CALLS APPROPRIATELY FOR ASSISTANCE. PATIENT FROM [facility] AND PLANS TO DC BACK THERE.
--- NOTE | 2019-07-30 04:11 | NUR ---
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
[2019-07-30 05:09] LABS: Anion Gap 7 mmol/L (6-16); Blood Urea Nitrogen 31 mg/dL (8-24); Bun/Creatinine Ratio 34.4 (12.0-20.0); CO2, Blood 29 mmol/L (21-32); Calcium, Blood 8.5 mg/dL (8.5-10.1); Chloride, Blood 93 mmol/L (98-108); Glomerular Filtration Rate >60 (60-); Glucose, Blood 93 mg/dL (70-99); Potassium, Blood 3.6 mmol/L (3.5-5.5); Sodium, Blood 129 mmol/L (136-145)
[2019-07-30] MEDS ORDERED: MELATONIN5 M1 PO (10:29)
--- NOTE | 2019-07-30 11:30 | NUR ---
PATIENT D[facility]. RX MEDICATIONS FAXED TO [facility] [address]. DC INSTRUCTIONS AND EDUCATION DISCUSSED WITH PATIENT AND COPY PROVIDED. PATIENT DENIES ANY FURTHER QUESTIONS OR CONCERNS.
== END 2019-07-30 11:29 | disposition home health service (06) | DRG 291 ==
LOC: ER 14:31 → MEDS 16:28
PROVIDERS: Emergency Medicine; Internal Medicine; Nurse Practitioner Acute Care; ADMIT Internal Medicine
DX: I50.43 Acute on chronic combined systolic (congestive) and diastolic (congestive) heart failure (principal); J96.01 Acute respiratory failure with hypoxia; E87.1 Hypo-osmolality and hyponatremia; I25.10 Atherosclerotic heart disease of native coronary artery without angina pectoris; N40.0 Benign prostatic hyperplasia without lower urinary tract symptoms; F43.12 Post-traumatic stress disorder, chronic; I34.0 Nonrheumatic mitral (valve) insufficiency; Z95.1 Presence of aortocoronary bypass graft; D63.8 Anemia in other chronic diseases classified elsewhere
CPT/HCPCS: 36415; 36600; 71045; 71046; 80048; 80053; 80069; 82803; 83735; 83880; 84295; 84484; 85025; 85027; 87804; 93005; 93010; 94761; 96374; 97110; 97116; 97161; 97165; 99285-25; A9270; A9270-GY; J1650; J1940

== ENCOUNTER → 2019-08-27 | Outpatient (CLI) | payer MEDICARE, BC ==
[~2019-08-27] MED LIST changes: +ACET325 PO; +ASPI81CH PO; +ATOR20 PO; +DILT120 PO; +FURO20 PO; +Ferrous Sulfat325 M2 PO; +MELATONIN5 M1 PO; +METO50 PO; +OXYC5 PO; +POTA10T PO; +Thera-M1 EACH PO
[2019-08-27 13:50] LABS: BASOPHILS ABSOLUTE AUTO 0.06 K/mm3 (0.00-0.23); BASOPHILS PERCENT AUTO 1 % (0-2); EOSINOPHILS ABSOLUTE AUTO 0.53 K/mm3 (0.00-0.68); EOSINOPHILS PERCENT AUTO 6 % (0-6); Hematocrit 34.1 % (37.0-53.0); Hemoglobin 10.5 g/dL (13.5-17.5); IMMATURE GRAN ABSOLUTE AUTO 0.05 K/mm3 (0.00-0.10); IMMATURE GRAN PERCENT AUTO 1 % (0-1); LYMPHOCYTES ABSOLUTE AUTO 1.34 K/mm3 (0.84-5.20); LYMPHOCYTES PERCENT AUTO 14 % (21-46); MONOCYTES ABSOLUTE AUTO 0.98 K/mm3 (0.16-1.47); MONOCYTES PERCENT AUTO 10 % (4-13); Mean Corpuscular HGB 26.6 pg (26.0-34.0); Mean Corpuscular HGB Conc 30.8 g/dL (31.5-36.5); Mean Corpuscular Volume 87 fL (80-100); Mean Platelet Volume 9.5 fL (9.1-12.4); NEUTROPHILS PERCENT AUTO 69 % (41-73); Platelet Count 317 K/mm3 (150-400); RDW Coefficient Variation 16.9 % (11.7-14.2); RDW Standard Deviation 53.4 fL (35.1-46.3); Red Blood Cell Count 3.94 M/mm3 (4.30-5.90); White Blood Cell Count 9.46 K/mm3 (4.00-11.30)
[2019-08-27 13:59] LABS: Alanine Aminotransfer (ALT/SGP 27 U/L (12-78); Albumin, Blood 3.4 g/dL (3.4-5.0); Albumin/Globulin Ratio 0.9 (0.8-1.8); Alk Phos 124 U/L (40-126); Anion Gap 12 mmol/L (6-16); Aspartate Aminotrans (AST/SGOT 25 U/L (12-37); Bilirubin, Total 0.6 mg/dL (0.1-1.0); Blood Urea Nitrogen 27 mg/dL (8-24); CHOL/HDL RATIO 2.5; CO2, Blood 25 mmol/L (21-32); Calcium, Blood 8.6 mg/dL (8.5-10.1); Chloride, Blood 101 mmol/L (98-108); Cholesterol 85 mg/dL (50-200); Glomerular Filtration Rate >60 (60-); Glucose, Blood 66 mg/dL (70-99); HDL Cholesterol 34 mg/dL (>39); LDL/HDL RATIO 1.1; Low Density Lipoprotein Chol 39 mg/dL (<110); Potassium, Blood 4.3 mmol/L (3.5-5.5); Sodium, Blood 138 mmol/L (136-145); Total Protein, Blood 7.4 g/dL (6.4-8.2); Triglycerides 60 mg/dL (30-160); Very Low Density Lipoprot Chol 12 mg/dL (6-32)
== END | disposition home or self-care (01) ==
LOC: LAB EV 13:21 → LAB SHORT 13:21
PROVIDERS: Internal Medicine Cardiovascular Disease
DX: I10 Essential (primary) hypertension (principal); I25.10 Atherosclerotic heart disease of native coronary artery without angina pectoris; E78.5 Hyperlipidemia, unspecified
CPT/HCPCS: 80053; 80061; 83880; 85025

== ENCOUNTER 2019-09-08 13:10 | Inpatient (IN) | payer MEDICARE, BC, OTHER ==
[~2019-09-08] VITALS: Ht 165.1 cm; Wt 60.2 kg
[~2019-09-08 13:10] MED LIST changes: -ASPI81CH PO; +Aspirin EC81 MG PO
[2019-09-08 14:20] LABS: BASOPHILS ABSOLUTE AUTO 0.06 K/mm3 (0.00-0.23); BASOPHILS PERCENT AUTO 1 % (0-2); EOSINOPHILS ABSOLUTE AUTO 0.54 K/mm3 (0.00-0.68); EOSINOPHILS PERCENT AUTO 6 % (0-6); Hematocrit 36.3 % (37.0-53.0); Hemoglobin 11.2 g/dL (13.5-17.5); IMMATURE GRAN ABSOLUTE AUTO 0.04 K/mm3 (0.00-0.10); IMMATURE GRAN PERCENT AUTO 0 % (0-1); LYMPHOCYTES ABSOLUTE AUTO 1.36 K/mm3 (0.84-5.20); LYMPHOCYTES PERCENT AUTO 14 % (21-46); MONOCYTES ABSOLUTE AUTO 1.18 K/mm3 (0.16-1.47); MONOCYTES PERCENT AUTO 12 % (4-13); Mean Corpuscular HGB 27.6 pg (26.0-34.0); Mean Corpuscular HGB Conc 30.9 g/dL (31.5-36.5); Mean Corpuscular Volume 89 fL (80-100); Mean Platelet Volume 9.5 fL (9.1-12.4); NEUTROPHILS ABSOLUTE AUTO 6.69 K/mm3 (1.96-9.15); NEUTROPHILS PERCENT AUTO 68 % (41-73); Platelet Count 253 K/mm3 (150-400); RDW Coefficient Variation 19.2 % (11.7-14.2); RDW Standard Deviation 60.9 fL (35.1-46.3); Red Blood Cell Count 4.06 M/mm3 (4.30-5.90); White Blood Cell Count 9.87 K/mm3 (4.00-11.30)
[2019-09-08 14:43] LABS: Alanine Aminotransfer (ALT/SGP 22 U/L (12-78); Albumin, Blood 3.6 g/dL (3.4-5.0); Alk Phos 103 U/L (50-136); Anion Gap 6 mmol/L (6-16); Aspartate Aminotrans (AST/SGOT 23 U/L (12-37); Bilirubin, Total 0.6 mg/dL (0.1-1.0); Blood Urea Nitrogen 26 mg/dL (8-24); Bun/Creatinine Ratio 26.2 (12.0-20.0); CO2, Blood 28 mmol/L (21-32); Calcium, Blood 8.5 mg/dL (8.5-10.1); Chloride, Blood 103 mmol/L (98-108); Creatinine, Blood 0.99 mg/dL (0.60-1.20); Globulin, Blood 3.6 g/dL (2.2-4.0); Glomerular Filtration Rate >60 (60-); Glucose, Blood 90 mg/dL (70-99); Potassium, Blood 4.1 mmol/L (3.5-5.5); Sodium, Blood 137 mmol/L (136-145); Total Protein, Blood 7.2 g/dL (6.4-8.2); Troponin I 0.017 ng/mL (0.000-0.040)
[2019-09-08] MEDS ORDERED: LISI20 PO (16:23)
[2019-09-09 05:07] LABS: Anion Gap 6 mmol/L (6-16); Blood Urea Nitrogen 26 mg/dL (8-24); Bun/Creatinine Ratio 27.7 (12.0-20.0); CO2, Blood 26 mmol/L (21-32); Calcium, Blood 8.5 mg/dL (8.5-10.1); Chloride, Blood 103 mmol/L (98-108); Creatinine, Blood 0.94 mg/dL (0.60-1.20); Glomerular Filtration Rate >60 (60-); Glucose, Blood 90 mg/dL (70-99); Potassium, Blood 3.9 mmol/L (3.5-5.5); Sodium, Blood 135 mmol/L (136-145)
[2019-09-10 05:02] LABS: Anion Gap 7 mmol/L (6-16); Blood Urea Nitrogen 32 mg/dL (8-24); Bun/Creatinine Ratio 26.4 (12.0-20.0); CO2, Blood 26 mmol/L (21-32); Calcium, Blood 8.7 mg/dL (8.5-10.1); Chloride, Blood 102 mmol/L (98-108); Creatinine, Blood 1.21 mg/dL (0.60-1.20); Glomerular Filtration Rate >60 (60-); Glucose, Blood 89 mg/dL (70-99); Sodium, Blood 135 mmol/L (136-145)
[2019-09-11 05:11] LABS: Anion Gap 6 mmol/L (6-16); Blood Urea Nitrogen 34 mg/dL (8-24); Bun/Creatinine Ratio 29.1 (12.0-20.0); CO2, Blood 25 mmol/L (21-32); Calcium, Blood 8.6 mg/dL (8.5-10.1); Chloride, Blood 102 mmol/L (98-108); Creatinine, Blood 1.17 mg/dL (0.60-1.20); Glomerular Filtration Rate >60 (60-); Glucose, Blood 90 mg/dL (70-99); Potassium, Blood 4.2 mmol/L (3.5-5.5); Sodium, Blood 133 mmol/L (136-145)
[2019-09-11] MEDS ORDERED: TORSE20 PO (10:45)
== END 2019-09-11 11:45 | disposition home or self-care (01) | DRG 291 ==
LOC: ER 13:10 → MEDS 16:20
PROVIDERS: Emergency Medicine; ADMIT Hospitalist
DX: I50.43 Acute on chronic combined systolic (congestive) and diastolic (congestive) heart failure (principal); J96.01 Acute respiratory failure with hypoxia; I25.10 Atherosclerotic heart disease of native coronary artery without angina pectoris; Z95.1 Presence of aortocoronary bypass graft; F43.12 Post-traumatic stress disorder, chronic
CPT/HCPCS: 36415; 71045; 80048; 80053; 83880; 84145; 84484; 85025; 86140; 93005; 93010; 96374; 99285-25; J1650; J1940; U0002

== ENCOUNTER 2024-06-24 17:29 | Inpatient (IN) | payer OTHER, MEDICARE ==
[~2024-06-24] VITALS: Ht 167.6 cm; Wt 56.5 kg
[~2024-06-24 17:29] MED LIST changes: +LISI20 PO; +TORSE20 PO
[2024-06-24 18:45] LABS: BASOPHILS ABSOLUTE AUTO 0.02 K/mm3 (0.00-0.23); BASOPHILS PERCENT AUTO 0 % (0-2); EOSINOPHILS ABSOLUTE AUTO 0.13 K/mm3 (0.00-0.68); EOSINOPHILS PERCENT AUTO 2 % (0-6); Hematocrit 40.4 % (37.0-53.0); Hemoglobin 13.9 g/dL (13.5-17.5); IMMATURE GRAN ABSOLUTE AUTO 0.05 K/mm3 (0.00-0.10); IMMATURE GRAN PERCENT AUTO 1 % (0-1); LYMPHOCYTES ABSOLUTE AUTO 1.43 K/mm3 (0.84-5.20); LYMPHOCYTES PERCENT AUTO 21 % (21-46); MONOCYTES ABSOLUTE AUTO 1.39 K/mm3 (0.16-1.47); MONOCYTES PERCENT AUTO 20 % (4-13); Mean Corpuscular HGB 31.4 pg (26.0-34.0); Mean Corpuscular HGB Conc 34.4 g/dL (31.5-36.5); Mean Corpuscular Volume 91 fL (80-100); Mean Platelet Volume 10.2 fL (9.1-12.4); NEUTROPHILS ABSOLUTE AUTO 3.95 K/mm3 (1.96-9.15); NEUTROPHILS PERCENT AUTO 57 % (41-73); Platelet Count 164 K/mm3 (150-400); RDW Coefficient Variation 12.9 % (11.7-14.2); RDW Standard Deviation 43.6 fL (35.1-46.3); Red Blood Cell Count 4.43 M/mm3 (4.30-5.90); White Blood Cell Count 6.97 K/mm3 (4.00-11.30)
[2024-06-24 19:12] LABS: Albumin, Blood 3.7 g/dL (3.4-5.0); Bilirubin, Total 0.5 mg/dL (0.1-1.0); Bun/Creatinine Ratio 27.6 (12.0-20.0); Calcium, Blood 8.5 mg/dL (8.5-10.1); Creatinine, Blood 2.93 mg/dL (0.60-1.20); Globulin, Blood 3.7 g/dL (2.2-4.0); Potassium, Blood 4.4 mmol/L (3.5-5.5); Total Protein, Blood 7.4 g/dL (6.4-8.2)
[2024-06-24] MEDS ORDERED: Acetaminophen 500 MG Tab PO ONE (20:10)
[2024-06-24] MEDS ORDERED: NS 1,000 ML IV SCH (20:10)
[2024-06-24] MEDS ORDERED: Ondansetron HCl 2 MG / ML 2ML Vial IV PRN (22:00)
[2024-06-24] MEDS ORDERED: Nitroglycerin 0.4 MG SUBL SL PRN (22:00)
[2024-06-24] MEDS ORDERED: FLU VACC TS2024-25(6MOS UP)/PF 45 MCG/0.5 ML SYRINGE IM ONE (22:05)
[2024-06-24] MEDS ORDERED: Acetaminophen 325 MG TABLET PO PRN (22:05)
[2024-06-24] MEDS ORDERED: Melatonin 5 MG Tablet PO PRN (22:05)
[2024-06-24] MEDS ORDERED: Heparin Sodium,Porcine/0.5 NS 500 ML IV SCH (22:20)
[2024-06-24] MEDS ORDERED: Heparin Sodium 5000 Units/ML 1ML MDV IV ONE (22:20)
[2024-06-24 22:28] LABS: Anti-Xa UFH, PHA Monitoring <0.10 IU/mL; International Normalized Ratio 1.05; Prothrombin Time Results 11.2 Sec (9.7-11.5)
[2024-06-24 23:45] VITALS: BP 154/85
[2024-06-25] MEDS ORDERED: NS 1,000 ML IV SCH ×2 (00:40→17:30)
[2024-06-25] MEDS ORDERED: TRAZ100 PO (00:45)
[2024-06-25] MEDS ORDERED: MELA3 PO (02:18)
[2024-06-25 04:00] VITALS: BP 114/62
--- NOTE | 2024-06-25 05:22 | NUR ---
SHIFT SUMMARY NOC PT A/O X 4. VERY KIANA, BUT PLEASANT AND COOPERATIVE WITH CARE. VSS ADMIT FROM ED WITH NSTEMI, PT HAD GLF AT HOME 3-4 DAYS AGO WHILE TRYING TO WALK BACKWARDS AND WAS DOWN FOR UNDETERMINED AMOUNT OF TIME. PT ALSO ENDORSE HAVING CP A FEW DAYS AGO. PT HAS BRUISING IN BUE AND BACK AND TOP OF HEAD FROM FALL. PT HAS NOT HAD C/O OF SP SINCE ARRIVING ON UNIT. PT HAS HEPARIN AND NS INFUSING. PT TROPONINS 1800, 1531, AND 1750, NO FURTHER TRENDING AT THIS TIME. WHEN ASLEEP PT IS REQUIRING 3-4L ON FOR SLEEP APNEA AND DESATS INTO 70'S-80'S ON RA. PT ON TELE SINUS/1DHB IN 60'S. PT CURRENTLY RESTING WITH BED IN LOWEST POSITION, AND CALL LIGHT WITHIN REACH.
[2024-06-25 05:31] LABS: BASOPHILS ABSOLUTE AUTO 0.02 K/mm3 (0.00-0.23); BASOPHILS PERCENT AUTO 1 % (0-2); EOSINOPHILS ABSOLUTE AUTO 0.01 K/mm3 (0.00-0.68); EOSINOPHILS PERCENT AUTO 0 % (0-6); Hematocrit 35.9 % (37.0-53.0); Hemoglobin 12.3 g/dL (13.5-17.5); IMMATURE GRAN ABSOLUTE AUTO 0.02 K/mm3 (0.00-0.10); IMMATURE GRAN PERCENT AUTO 1 % (0-1); LYMPHOCYTES ABSOLUTE AUTO 1.43 K/mm3 (0.84-5.20); LYMPHOCYTES PERCENT AUTO 34 % (21-46); MONOCYTES ABSOLUTE AUTO 0.61 K/mm3 (0.16-1.47); MONOCYTES PERCENT AUTO 15 % (4-13); Mean Corpuscular HGB 31.5 pg (26.0-34.0); Mean Corpuscular HGB Conc 34.3 g/dL (31.5-36.5); Mean Corpuscular Volume 92 fL (80-100); Mean Platelet Volume 10.1 fL (9.1-12.4); NEUTROPHILS PERCENT AUTO 50 % (41-73); Platelet Count 135 K/mm3 (150-400); RDW Standard Deviation 43.7 fL (35.1-46.3); White Blood Cell Count 4.19 K/mm3 (4.00-11.30)
[2024-06-25] MEDS ORDERED: Dose Adjust by Pharmacy XX STA ×3 (06:05→20:46)
[2024-06-25 06:08] LABS: Bilirubin, Total 0.4 mg/dL (0.1-1.0); Bun/Creatinine Ratio 29.8 (12.0-20.0); Calcium, Blood 7.7 mg/dL (8.5-10.1); Creatinine, Blood 2.65 mg/dL (0.60-1.20); Globulin, Blood 2.9 g/dL (2.2-4.0); Magnesium, Blood 2.2 mg/dL (1.6-2.4); Potassium, Blood 3.4 mmol/L (3.5-5.5); Total Protein, Blood 5.9 g/dL (6.4-8.2)
--- NOTE | 2024-06-25 06:11 | NUR ---
NOTIFIED BY PHARMACY TO STOP HEPARIN INFUSION AND TO RESTART @ 0700 WITH NEW DOSAGE OF 12 UNITS/KG/HR AND RATE 13.0 ML/HR FOR 54 KG.
--- NOTE | 2024-06-25 06:35 | NUR ---
SHIFT SUMMARY NOC PT A/O X 4. VERY [place], BUT PLEASANT AND COOPERATIVE WITH CARE. VSS ADMIT FROM ED WITH NSTEMI, PT HAD GLF AT HOME 3-4 DAYS AGO WHILE TRYING TO WALK BACKWARDS AND WAS DOWN FOR UNDETERMINED AMOUNT OF TIME AND DEVELOPED RHABDO WITH RENAL INSUFFICIENCY, US RENAL/BLADDER SCHEDULED. PT ALSO ENDORSE HAVING CP A FEW DAYS AGO. PT HAS BRUISING IN BUE AND BACK AND TOP OF HEAD FROM FALL. PT HAS NOT HAD C/O OF SP SINCE ARRIVING ON UNIT. PT HAS HEPARIN AND NS INFUSING. PT TROPONINS 1800, 1531, AND 1750, NO FURTHER TRENDING AT THIS TIME. WHEN ASLEEP PT IS REQUIRING 3-4L ON FOR SLEEP APNEA AND DESATS INTO 70'S-80'S ON RA. PT ON TELE SINUS/1DHB IN 60'S. PT CURRENTLY RESTING WITH BED IN LOWEST POSITION, AND CALL LIGHT WITHIN REACH.
[2024-06-25 08:00] VITALS: BP 126/56
[2024-06-25] MEDS ORDERED: Potassium Chloride 20 MEQ TabCR PO ONE ×2 (08:00→09:00)
[2024-06-25] MEDS ORDERED: Torsemide 20 MG TAB PO SCH (09:00)
[2024-06-25] MEDS ORDERED: Aspirin 81 MG Chew PO SCH (09:00)
[2024-06-25] MEDS ORDERED: Atorvastatin 40 MG Tab PO SCH ×2 (09:00→12:00)
[2024-06-25] MEDS ORDERED: Metoprolol Succinate 50 MG TABCR PO SCH (09:00)
[2024-06-25] MEDS ORDERED: NS 500 ML IV SCH ×2 (10:50→11:50)
[2024-06-25 11:59] VITALS: BP 129/62
[2024-06-25 13:41] LABS: Free Thyroxine 1.38 ng/dL (0.70-1.60)
[2024-06-25 13:43] LABS: Thyroid Stimulating Hormone 0.64 uIU/mL (0.360-4.800)
[2024-06-25 16:27] VITALS: BP 109/61
--- NOTE | 2024-06-25 18:05 | NUR ---
SHIFT SUMMARY: PT A&O X4. PLEASANT AND COOPERATIVE WITH CARE. DIAGNOSE OF NSTEMI AND ACUTE RENAL INSUFFICIENCY SECONDARY TO RHABDO. PT HAS NS INFUSING @ 100/HR IN RFA IV. HEPARIN DRIP INFUSING @ 12U/KG/HR IN ASAEL IV. PT VOIDING WELL THIS SHIFT. MONITOR I&O CLOSELY. ECHO COMPLETED THIS AM. PT HAS HAD TWO EPISODES OF 02 DROPPING INTO MID 50'S AND MID 70'S - BOTH TIMES WHILE PT WAS SLEEPING. EYE SPECIALIST REPORTED POSSIBLE UNDIAGNOSED SLEEP APNEA. POTASSIUM LEVEL OF 3.4 THIS AM. REPLACED WITH PO SUPPLEMENTS. CALL LIGHT IN REACH.
[2024-06-25 20:01] VITALS: BP 133/74
[2024-06-25] MEDS ORDERED: TraZODone HCl 100 MG Tab PO SCH (21:00)
[2024-06-25] MEDS ORDERED: LamoTRIgine 100 MG Tab PO SCH (21:00)
[2024-06-25] MEDS ORDERED: Tamsulosin HCl 0.4 MG Cap PO SCH (21:00)
[2024-06-25 23:35] VITALS: BP 126/59
[2024-06-26 03:46] VITALS: BP 123/63
[2024-06-26 04:19] LABS: Hemoglobin 10.8 g/dL (13.5-17.5); Mean Corpuscular HGB 31.3 pg (26.0-34.0); Mean Corpuscular HGB Conc 33.8 g/dL (31.5-36.5); Mean Corpuscular Volume 93 fL (80-100); Mean Platelet Volume 9.8 fL (9.1-12.4); Platelet Count 116 K/mm3 (150-400); RDW Coefficient Variation 13.2 % (11.7-14.2); Red Blood Cell Count 3.45 M/mm3 (4.30-5.90); White Blood Cell Count 4.28 K/mm3 (4.00-11.30)
[2024-06-26 04:49] LABS: BAND PERCENT MAN 2 % (0-8); BASOPHILS PERCENT MAN 0 % (0-2); EOSINOPHILS ABSOLUTE MAN 0.08 K/mm3 (0.00-0.68); EOSINOPHILS PERCENT MAN 2 % (0-6); LYMPHOCYTES ABSOLUTE MAN 0.98 K/mm3 (0.84-5.20); LYMPHOCYTES PERCENT MAN 23 % (21-46); MONOCYTES ABSOLUTE MAN 0.72 K/mm3 (0.16-1.47); MONOCYTES PERCENT MAN 17 % (4-13); NEUTROPHILS ABSOLUTE MAN 2.48 K/mm3 (1.96-9.15); SEG NEUTROPHILS PERCENT MAN 56 % (41-73); TOTAL CELLS COUNTED 100
--- NOTE | 2024-06-26 05:02 | NUR ---
SHIFT SUMMARY PT REMAINS A&OX4. VSS. PT ON 1-2L NOC TO REMAIN >90%. NO C/O CP THROUGHOUT NIGHT. PT REMAINS SR WITH A RATE IN 80s. PT AMBULATING TO BATHROOM WITH 1A. STRICT I&Os DOCUMENTED, GOOD OUTPUT THROUGHOUT NIGHT. PT CONTINUES TO HAVE HEPARIN GTT WITH NS @ 100CC/HR CONTINUOUSLY. NO FURTHER QUESTIONS OR CONCERNS AT THIS TIME. CALL SPENCER WITHIN REACH. WILL REPORT TO ONCOMING NURSE.
[2024-06-26 05:10] LABS: Albumin, Blood 2.7 g/dL (3.4-5.0); Bilirubin, Total 0.3 mg/dL (0.1-1.0); Bun/Creatinine Ratio 30.2 (12.0-20.0); Calcium, Blood 7.2 mg/dL (8.5-10.1); Creatinine, Blood 1.39 mg/dL (0.60-1.20); Globulin, Blood 2.6 g/dL (2.2-4.0); Phosphorus, Blood 1.6 mg/dL (2.5-4.9); Potassium, Blood 4.6 mmol/L (3.5-5.5); Total Protein, Blood 5.3 g/dL (6.4-8.2)
[2024-06-26 07:34] VITALS: BP 124/68
[2024-06-26] MEDS ORDERED: Sodium Phosphate 30 MM in Dextrose 5% 500 ML IV STA (08:17)
[2024-06-26] MEDS ORDERED: Clopidogrel Bisulfate 75 MG Tab PO SCH (09:00)
[2024-06-26] MEDS ORDERED: Furosemide 10 MG / ML 2ML Vial IV SCH (09:00)
[2024-06-26] MEDS ORDERED: Enoxaparin 40 MG/0.4 ML SYR SC SCH (09:00)
[2024-06-26] MEDS ORDERED: Ferrous Sulfate 325 MG Tab PO SCH (09:00)
[2024-06-26] MEDS ORDERED: Empagliflozin 10 MG TAB PO SCH (09:00)
--- NOTE | 2024-06-26 10:43 | NUR ---
am note this rn assumed care at 0700. vital signs stable. tele sinus rhythm 70s. patient is alert and oriented to current situation, place, person and self. patient asking if it was saturday or saturday and when asked which day he thought it was he was unsure. patient is forgetful and bed alarm on for safety as patient will get up without calling. patient denies pain, chest pain/pressure or shortness of breath. see shift assessment for further detials. patient is medical status with tele
--- NOTE | 2024-06-26 11:31 | NUR ---
"Spiritual Care | Pt. Request Pt. is awake and welcomed our visit. Ernesto Berger is present. Facilitated a lengthy life review. Pt. verbalized some of the events of his spiritual journey. Pt. verbalized some questions. With theraputic listening, interest, and a calming presence, provided a safe place for the Pt. to share his thoughts. Prayed with the Pt. After some more life review the Pt. verbalized gratitude for the spiritual care visit."
--- NOTE | 2024-06-26 13:20 | NUR ---
update this rn gave report to donna turcios and patient will be moving to room 362. patient belongings gathered and transfered to new room. patient left in no distress.
[2024-06-26 13:48] VITALS: BP 130/71
[2024-06-26 14:55] VITALS: BP 142/69
--- NOTE | 2024-06-26 16:09 | NUR ---
PATIENT IS ALERT AND ORIENTED WITH SOME FORGETFULLNESS. 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 CALLS APPROPRIATELY. SBA TO THE BATHROOM TO VOID. IVF PER EMAR. ON RA. VSS. NO C/O CP OR SOB. WILL CONTINUE TO MONITOR
[2024-06-26 20:32] VITALS: BP 146/82
[2024-06-26] MEDS ORDERED: Benzonatate 100 MG Cap PO PRN (22:55)
[2024-06-27 04:46] VITALS: BP 144/73
[2024-06-27 05:24] LABS: Hematocrit 33.8 % (37.0-53.0); Hemoglobin 11.4 g/dL (13.5-17.5); Mean Corpuscular HGB 31.4 pg (26.0-34.0); Mean Corpuscular HGB Conc 33.7 g/dL (31.5-36.5); Mean Corpuscular Volume 93 fL (80-100); Mean Platelet Volume 10.1 fL (9.1-12.4); Platelet Count 125 K/mm3 (150-400); RDW Coefficient Variation 13.1 % (11.7-14.2); Red Blood Cell Count 3.63 M/mm3 (4.30-5.90); White Blood Cell Count 4.33 K/mm3 (4.00-11.30)
[2024-06-27 06:11] LABS: BASOPHILS ABSOLUTE MAN 0.04 K/mm3 (0.00-0.23); BASOPHILS PERCENT MAN 1 % (0-2); EOSINOPHILS ABSOLUTE MAN 0.04 K/mm3 (0.00-0.68); EOSINOPHILS PERCENT MAN 1 % (0-6); LYMPHOCYTES ABSOLUTE MAN 1.34 K/mm3 (0.84-5.20); LYMPHOCYTES PERCENT MAN 31 % (21-46); MONOCYTES ABSOLUTE MAN 0.47 K/mm3 (0.16-1.47); MONOCYTES PERCENT MAN 11 % (4-13); NEUTROPHILS ABSOLUTE MAN 2.42 K/mm3 (1.96-9.15); SEG NEUTROPHILS PERCENT MAN 56 % (41-73); TOTAL CELLS COUNTED 100
--- NOTE | 2024-06-27 06:12 | NUR ---
SHIFT SUMMARY: Pt admitted for NSTEMI and is a full code. Is alert and able to make needs known. ADLs have been SBA. denies pain or discomfort when asked. Telly reports sinus in the 70s with 1deg and a bundle branch. Iv to right wrist running NS at 100.
[2024-06-27 06:13] LABS: Albumin, Blood 2.8 g/dL (3.4-5.0); Bilirubin, Total 0.4 mg/dL (0.1-1.0); Bun/Creatinine Ratio 19.2 (12.0-20.0); Calcium, Blood 7.6 mg/dL (8.5-10.1); Creatinine, Blood 1.25 mg/dL (0.60-1.20); Globulin, Blood 2.8 g/dL (2.2-4.0); Magnesium, Blood 2.1 mg/dL (1.6-2.4); Potassium, Blood 4.4 mmol/L (3.5-5.5); Total Protein, Blood 5.6 g/dL (6.4-8.2)
[2024-06-27 07:36] VITALS: BP 149/90
[2024-06-27] MEDS ORDERED: Spironolactone 25 MG Tab PO SCH (09:00)
--- NOTE | 2024-06-27 09:00 | NUR ---
pt laying in bed with eyes closed, didn't want to wake up, states he probably wont eat breakfast, irritable, lungs are clear in upper escalante, fine crackles, dim in bases, resp even and unlabored, occ nonproductive cough noted, hrr, no edema noted, ppp+2, cap refill<3 sec, vs stable, afebrile, piv x2 to l and r ac, sites are clear and patent, btx4, abd flat soft nontener, reports reg bm's voids in urinal, latrice urine, skin has skin tears, mepilex to coccyx for prevention, see chart, ariel, up indep in room, jane, call light in reach.
[2024-06-27] MEDS ORDERED: Spironolactone 12.5 MG TAB PO SCH (09:21)
[2024-06-27 17:33] VITALS: BP 145/65
--- NOTE | 2024-06-27 18:34 | NUR ---
pt doesn't remember coming in to hosp and was very surprised it's saturday, no acute changes this shift, no complaints of increased sob, will continue fluids for another day per , pt getting himself up indep to toilet himself. call light in reach.
[2024-06-27 20:10] VITALS: BP 162/78
[2024-06-28 02:34] VITALS: BP 158/69
--- NOTE | 2024-06-28 05:35 | NUR ---
SHIFT SUMMARY: Pt admitted for NSTEMI and is a full code. Is alert and able to make needs known. ADLs have been SBA. denies pain or discomfort when asked. Telly reports sinus in the 70s with a bundle branch. Iv to right wrist running NS at 100
[2024-06-28 05:43] LABS: Hematocrit 32.2 % (37.0-53.0); Hemoglobin 11.1 g/dL (13.5-17.5); Mean Corpuscular HGB 31.7 pg (26.0-34.0); Mean Corpuscular HGB Conc 34.5 g/dL (31.5-36.5); Mean Corpuscular Volume 92 fL (80-100); Mean Platelet Volume 9.9 fL (9.1-12.4); Platelet Count 144 K/mm3 (150-400); RDW Coefficient Variation 13.1 % (11.7-14.2); RDW Standard Deviation 43.8 fL (35.1-46.3); White Blood Cell Count 5.82 K/mm3 (4.00-11.30)
[2024-06-28 06:08] LABS: BASOPHILS PERCENT MAN 0 % (0-2); EOSINOPHILS ABSOLUTE MAN 0.11 K/mm3 (0.00-0.68); EOSINOPHILS PERCENT MAN 2 % (0-6); LYMPHOCYTES ABSOLUTE MAN 1.16 K/mm3 (0.84-5.20); LYMPHOCYTES PERCENT MAN 20 % (21-46); MONOCYTES ABSOLUTE MAN 0.93 K/mm3 (0.16-1.47); MONOCYTES PERCENT MAN 16 % (4-13); SEG NEUTROPHILS PERCENT MAN 62 % (41-73); TOTAL CELLS COUNTED 100
[2024-06-28 06:15] LABS: Albumin, Blood 2.8 g/dL (3.4-5.0); Bilirubin, Total 0.5 mg/dL (0.1-1.0); Bun/Creatinine Ratio 15.8 (12.0-20.0); Calcium, Blood 7.6 mg/dL (8.5-10.1); Creatinine, Blood 1.14 mg/dL (0.60-1.20); Globulin, Blood 2.8 g/dL (2.2-4.0); Magnesium, Blood 1.8 mg/dL (1.6-2.4); Potassium, Blood 4.1 mmol/L (3.5-5.5); Total Protein, Blood 5.6 g/dL (6.4-8.2)
[2024-06-28 07:38] VITALS: BP 159/81
[2024-06-28] MEDS ORDERED: Magnesium Oxide 400 MG Tab PO ONE (08:15)
--- NOTE | 2024-06-28 09:01 | NUR ---
pt laying in bed at the bottom, he states he's uncomfortable, had him sit up on side of bed for assessment and medications, after he was able to stand and move himself up to a better position in the bed, a/ox4, pleasant and cooperative with care, follows commands well, denies pain except upper abd from coughing is tender, lungs are clear in upper escalante, dim, very fine crackles in bases, on r/a, has productive wet cough of dark yellow sputum, hrr, tele in place running sr with 1st degree block and bbb, piv x2 to r and l fa's, no edema noted, ppp+2, cap refill <3 sec, vs stable, afebrile, btx4, abd flat soft nontender, voids via urinal clear yellow urine, skin c/w/d, except skin tear to left elbow, mepilex to coccyx for prevention, maew, uses walker to ambulated in room, gait noted to be steady, jane, call light in reach.
[2024-06-28] MEDS ORDERED: METO50ER PO (13:28)
[2024-06-28] MEDS ORDERED: JARDIANCE10 MG PO (13:30)
[2024-06-28] MEDS ORDERED: SPIR25 PO (13:31)
[2024-06-28] MEDS ORDERED: FERSU300 PO (13:31)
--- NOTE | 2024-06-28 15:30 | NUR ---
pt is being discharged to home, ivx2 removed intact, went over discharge instructions with pt, he verbalizes understanding, went over several times, he states no questions, new meds faxed to [facility] per pt request, left via wheelchair with gas pump attendant in attendence.
== END 2024-06-28 15:34 | disposition home health service (06) | DRG 564 ==
LOC: ER 17:29 → PCU 21:58 → MEDS 06-26 13:33
PROVIDERS: Emergency Medicine; Student in an Organized Health Care Education/Training Program; ADMIT Student in an Organized Health Care Education/Training Program
DX: T79.6XXA Traumatic ischemia of muscle, initial encounter (principal); E43 Unspecified severe protein-calorie malnutrition; I21.A1 Myocardial infarction type 2; N17.9 Acute kidney failure, unspecified; I50.42 Chronic combined systolic (congestive) and diastolic (congestive) heart failure; E87.1 Hypo-osmolality and hyponatremia; Z28.21 Immunization not carried out because of patient refusal; Z68.22 Body mass index [BMI] 22.0-22.9, adult; N40.0 Benign prostatic hyperplasia without lower urinary tract symptoms; F43.12 Post-traumatic stress disorder, chronic; I25.10 Atherosclerotic heart disease of native coronary artery without angina pectoris; Z95.1 Presence of aortocoronary bypass graft; Z87.891 Personal history of nicotine dependence; Z79.899 Other long term (current) drug therapy; Z79.82 Long term (current) use of aspirin; W19.XXXA Unspecified fall, initial encounter; N18.9 Chronic kidney disease, unspecified; D63.8 Anemia in other chronic diseases classified elsewhere; G47.00 Insomnia, unspecified
CPT/HCPCS: 36415; 51798; 70450; 71046; 73090; 76770; 80053; 82550; 82570; 82607; 82728; 82746; 83540; 83550; 83735; 83880; 83930; 83935; 84100; 84300; 84439; 84443; 84484; 85025; 85520; 85610; 85730; 93005; 93010; 93306; 94762; 96360-59; 97161; 97530; 99285-25; A9270; J1644; J1650; J1940; J7030; J7040; J7060